=== PATIENT | male | born 1960 | race Two or more races ===

== ENCOUNTER 2020-10-12 13:05 | Outpatient (CLI) | payer OTHER | END 2020-10-12 13:19 | disposition home or self-care (01) | LOC: TOM 13:05 | PROVIDERS: ATTEND Urology | DX: N40.1 Benign prostatic hyperplasia with lower urinary tract symptoms (principal) ==

== ENCOUNTER 2020-12-04 10:20 | Outpatient (CLI) | payer OTHER | END 2020-12-04 10:42 | disposition home or self-care (01) | LOC: RX STUDY 10:20 | PROVIDERS: ATTEND Urology | DX: Q64.32 Congenital stricture of urethra (principal) ==

== ENCOUNTER → 2021-03-17 | Outpatient (CLI) | payer OTHER | END | disposition home or self-care (01) | LOC: NUCLEAR 09:00 | PROVIDERS: ATTEND Specialist | DX: I10 Essential (primary) hypertension (principal); R06.02 Shortness of breath; E60 Dietary zinc deficiency ==